=== PATIENT | male | born 1995 | race Caucasian/White ===

== ENCOUNTER 2016-07-23 22:16 | Emergency (ER) | payer SELFPAY ==
[2016-07-23 22:58] VITALS: TEMP 98.2; O2SAT 99
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
[2016-07-24 00:31] VITALS: BP 118/64
== END 2016-07-24 00:20 | disposition home or self-care (01) ==
LOC: ER 22:16
DX: S43.409A Unspecified sprain of unspecified shoulder joint, initial encounter (principal); V86.59XA Driver of other special all-terrain or other off-road motor vehicle injured in nontraffic accident, initial encounter

== ENCOUNTER 2017-04-23 20:21 | Emergency (ER) | payer OTHER ==
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
[2017-04-23 21:00] VITALS: TEMP 98
[2017-04-23] MEDS: TETANUS,DIPHTHERIA,PERTUSSIS 1 EA SYG IM ONE (21:29)
--- NOTE | 2017-04-23 21:43 | CT ---
PROCEDURE: Head HISTORY: pain Indication: Same as above Comparison: None Technique: CT of the head was done without intravenous contrast was done in the orthogonal planes. This exam was performed according to our departmental dose-optimization program, which includes automated exposure control, adjustment of the mA and/or KV according to the patient's size and/or use of iterative reconstruction technique. FINDINGS: There is no intracranial hemorrhage, midline shift mass effect or acute focal infarct. If clinical concern exists regarding an acute ischemic/vascular pathology being responsible for patient's symptomatology, an MRI of the brain is more sensitive than the current study, in ruling out such a possibility. There is good ann/white matter differentiation. The ventricular system is normal. The mastoid air cells are unremarkable . The paranasal sinuses are unremarkable . There is no visualization of acute fractures involving the calvarium or the skull base. IMPRESSION: There is no acute intracranial abnormality. Electronically signed by: Hector Reed MD 04/23/2017 9:42 PM CDT Workstation: [id number]
--- NOTE | 2017-04-23 21:46 | CT ---
PROCEDURE: Cervical Spine HISTORY: pain Indication: Same as above Comparison: None Technique: CT of the cervical spine was done without intravenous contrast, including axial, sagittal and coronal reconstructions. This exam was performed according to our departmental dose-optimization program, which includes automated exposure control, adjustment of the mA and/or KV according to the patient's size and/or use of iterative reconstruction technique. FINDINGS: There is no CT evidence of acute cervical spinal fractures or dislocations. The craniovertebral junction appears unremarkable. There is no significant degenerative change There is limited evaluation for acute or chronic intervertebral disc herniations or protrusions given the limitation of lack of intrathecal contrast. The prevertebral and the paravertebral soft tissues appear unremarkable. There is no gross evidence of epidural hematoma or paraspinal soft tissue fluid collections. The remainder of the visualized surrounding subcutaneous soft tissues and muscle structures are grossly unremarkable. The visualized airway appears unremarkable. The hyoid, cricoid and laryngeal cartilages are intact. The visualized segments of the bilateral parotid glands and the bilateral submandibular glands are unremarkable. There is no visualization of pathological lymphadenopathy in the region of the imaged neck. The bone mineralization is normal. The visualized lung apices are unremarkable . The sagittal reconstructed images demonstrate normal alignment The coronal reconstructed images demonstrate normal alignment. IMPRESSION: Negative for acute cervical spine bony trauma. Electronically signed by: Hector Reed MD 04/23/2017 9:44 PM CDT Workstation: [id number]
[2017-04-23] MEDS: CEPHALEXIN MONOHYDRATE 500 MG CAP PO ONE (21:56)
[2017-04-23] MEDS: HYDROcodone 7.5MG/APAP 325MG 1 EA TAB PO ONE (22:06)
[2017-04-23] MEDS: KETOROLAC TROMETHAMINE INJ 30 MG/ML VIAL IM ONE (22:07)
[2017-04-23] MEDS: ORPHENADRINE CITRATE 30 MG/ML AMP IV ONE (22:08)
[2017-04-23] MEDS: ORPHENADRINE CITRATE 30 MG/ML AMP IM ONE (22:11)
[2017-04-23] MEDS: HYDROCOD/APAP 7.5/325 (ER DISP) #3 TAB PO ONE (22:51)
[2017-04-23 22:55] VITALS: BP 118/65; O2SAT 99
== END 2017-04-23 22:59 | disposition home or self-care (01) ==
LOC: ER 20:21
DX: S06.0X0A Concussion without loss of consciousness, initial encounter (principal); S30.810A Abrasion of lower back and pelvis, initial encounter; S20.419A Abrasion of unspecified back wall of thorax, initial encounter; Z23 Encounter for immunization; V86.56XA Driver of dirt bike or motor/cross bike injured in nontraffic accident, initial encounter; Y92.9 Unspecified place or not applicable
CPT/HCPCS: 36415; 70450; 72125; 80053; 81001; 85025; 90471; 90715; J1885; J2360

== ENCOUNTER 2018-10-20 18:57 | Emergency (ER) | payer SELFPAY ==
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
[2018-10-20 19:24] VITALS: TEMP 99.9; O2SAT 99
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
[2018-10-20 20:12] VITALS: BP 123/78
== END 2018-10-20 20:12 | disposition home or self-care (01) ==
LOC: ER 18:57
DX: S82.832A Other fracture of upper and lower end of left fibula, initial encounter for closed fracture (principal); F17.290 Nicotine dependence, other tobacco product, uncomplicated; V86.59XA Driver of other special all-terrain or other off-road motor vehicle injured in nontraffic accident, initial encounter; Y92.9 Unspecified place or not applicable

== ENCOUNTER 2019-09-11 | Emergency (ER) | payer OTHER | END 2019-09-11 21:55 | disposition home or self-care (01) | DX: M24.411 Recurrent dislocation, right shoulder (principal); F17.290 Nicotine dependence, other tobacco product, uncomplicated | CPT/HCPCS: 73020; 94770; J1885 ==

== ENCOUNTER 2019-09-14 07:55 | Emergency (ER) | payer OTHER ==
--- NOTE | 2019-09-14 08:29 | ED.PDOC ---
History of Present Illness - General Chief Complaint: Upper Extremity Injury Stated Complaint: Poss R shoudler dislocation Time Seen by Provider: 09/14/19 08:26 - History of Present Illness Initial Comments: 23 yo M PMH repeated right shoulder dislocations x 6 years presents to ED c/o right shoulder pain and dislocation last night during sleep. Denies new trauma fever chills nausea vomiting diarrhea chest pain sob diaphoresis. Otherwise no change in diet bowel or bladder admits electronic cigarettes PMD Alton Lara no other c/o today. Allergies/Adverse Reactions: Allergies NO KNOWN ALLERGY Allergy (Verified 09/14/19 08:06) Home Medications: Ambulatory Orders Ikchgvmmuralf-Ueuq-Ustkbdkvwy [Fioricet] 1 ea PO Q8H PRN #21 tab 10/20/18 Acetaminophen [Tylenol] 650 mg PO Q6H PRN #30 tab 09/14/19 Ibuprofen 600 mg PO Q6H PRN #20 tab 09/14/19 Review of Systems - Review of Systems Constitutional: States: see HPI EENTM: States: see HPI Respiratory: States: see HPI Cardiology: States: see HPI Gastrointestinal/Abdominal: States: see HPI Genitourinary: States: see HPI Musculoskeletal: States: see HPI Skin: States: see HPI Neurological: States: see HPI Endocrine: States: see HPI Hematologic/Lymphatic: States: see HPI All other Systems: Reviewed and Negative Past Medical History (General) - Patient Medical History Hx Seizures: No Hx Stroke: No Hx Dementia: No Hx Asthma: No Hx of COPD: No Hx Cardiac Disorders: No Hx Congestive Heart Failure: No Hx Pacemaker: No Hx Hypertension: No Hx Thyroid Disease: No Hx Diabetes: No Hx Gastroesophageal Reflux: No Hx Renal Disease: No Hx Cancer: No Hx of HIV: No Hx Hepatitis C: No Hx MRSA: No - Vaccination History Hx Tetanus, Diphtheria Vaccination: Yes Hx Influenza Vaccination: No Hx Pneumococcal Vaccination: No Immunizations Up to Date: No - Social History Hx Tobacco Use: Yes Hx Chewing Tobacco Use: No Hx Alcohol Use: Yes Hx Substance Use: No Hx Substance Use Treatment: No Hx Depression: No Hx Physical Abuse: No Hx Emotional Abuse: No Hx Suspected Abuse: No - Female History Patient is a Female of Child Bearing Age (10 -59 yrs old): No Patient : No Family Medical History - Family History Mother Family History: No Known Living Status: Still Living Hx Family Hypertension: Yes Hx Family Diabetes: Yes Physical Exam - Physical Exam General Appearance: No apparent distress Eyes, Ears, Nose, Throat Exam: normal ENT inspection Neck: non-tender, full range of motion Cardiovascular/Respiratory: regular rate, rhythm Abdominal Exam: non-tender Back Exam: no CVA tenderness Shoulder Exam: limited ROM, pain - on right Elbow/Forearm Exam: non-tender Wrist Exam: non-tender Hand Exam: non-tender Neuro/Tendon: normal sensation Mental Status: alert, oriented x 3 Skin Exam: normal color Progress - Progress Progress: 09/14/19 08:30 A/P-Shoulder Pain Shoulder Dislocation-pain control reduce sling d/c follow up pcp consider surgical definitive repair tylenol ibuprofen 09/14/19 08:55 EXAM DESCRIPTION: Shoulder, right 2 or More Views : CLINICAL HISTORY: Poss dislocation . COMPARISON: September 10 . TECHNIQUE: A two view x-ray examination of Right shoulder is submitted. FINDINGS: Anterior subcoracoid dislocation of the right shoulder is noted. On the prior examination a prominent Hill-Sachs deformity was seen. There is no evidence of soft tissue swelling. The bones are normally mineralized . AC joint appears unremarkable. IMPRESSION: Recurrent anterior dislocation right shoulder. Electronically signed by: Meche Franco MD 09/14/2019 8:32 AM CDT 09/14/19 09:27 EXAM DESCRIPTION: Shoulder, right 2 or More Views : CLINICAL HISTORY: Post r eduction x-ray . COMPARISON: 09/14/2019, 8:14 AM . TECHNIQUE: Three view x-ray examination of right shoulder is submitted. FINDINGS: Satisfactory reduction of the shoulder dislocation is noted. Prominent Hill-Sachs deformity seen. There is no evidence of soft tissue swelling. The bones are normally mineralized . IMPRESSION: Satisfactory reduction of the shoulder dislocation. Hill-Sachs deformity. Electronically signed by: Meche Franco MD 09/14/2019 9:23 AM CDT Departure - Departure Clinical Impression: Recurrent anterior dislocation of right shoulder, Hill Sachs deformity, right Shoulder pain Qualifiers: Chronicity: chronic Laterality: right Qualified Code(s): M25.511 - Pain in right shoulder; G89.29 - Other chronic pain Time of Disposition: 09:32 Disposition: Discharge to Home or Self Care Condition: Good Departure Forms: ED Discharge - Pt. Copy, Patient Portal Self Enrollment Instructions: DI for Arm Pain Referrals: ELSA LARA IV, BILLET CUTTER [Primary Care Provider] - 1-2 Days Prescriptions: Acetaminophen [Tylenol] 650 mg PO Q6H PRN #30 tab PRN Reason: Pain Ibuprofen 600 mg PO Q6H PRN #20 tab PRN Reason: Pain Home Medications: Ambulatory Orders Afylajttujwos-Dypp-Lxpjlefxpt [Fioricet] 1 ea PO Q8H PRN #21 tab 10/20/18 Acetaminophen [Tylenol] 650 mg PO Q6H PRN #30 tab 09/14/19 Ibuprofen 600 mg PO Q6H PRN #20 tab 09/14/19
--- NOTE | 2019-09-14 08:37 | RAD ---
EXAM DESCRIPTION: Shoulder, right 2 or More Views : CLINICAL HISTORY: Poss dislocation . COMPARISON: September 10 . TECHNIQUE: A two view x-ray examination of Right shoulder is submitted. FINDINGS: Anterior subcoracoid dislocation of the right shoulder is noted. On the prior examination a prominent Hill-Sachs deformity was seen. There is no evidence of soft tissue swelling. The bones are normally mineralized . AC joint appears unremarkable. IMPRESSION: Recurrent anterior dislocation right shoulder. Electronically signed by: Meche Franco MD 09/14/2019 8:32 AM CDT
[2019-09-14] MEDS ORDERED: PROPOFOL 200 MG/20 ML VIAL IV ONE (08:43)
[2019-09-14] MEDS ORDERED: SODIUM CHLORIDE 0.9% 1000ML 1,000 ML ONE (08:48)
[2019-09-14] MEDS ORDERED: ETOMIDATE INJECTION 2 MG/ML 20ML VIAL IV ONE (08:52)
[2019-09-14] MEDS: SODIUM CHLORIDE 0.9% 1000ML 1,000 ML IVS ONE (08:57)
[2019-09-14] MEDS: ETOMIDATE INJECTION 2 MG/ML 20ML VIAL IV ONE (08:57)
--- NOTE | 2019-09-14 09:26 | RAD ---
EXAM DESCRIPTION: Shoulder, right 2 or More Views : CLINICAL HISTORY: Post reduction x-ray . COMPARISON: 09/14/2019, 8:14 AM . TECHNIQUE: Three view x-ray examination of right shoulder is submitted. FINDINGS: Satisfactory reduction of the shoulder dislocation is noted. Prominent Hill-Sachs deformity seen. There is no evidence of soft tissue swelling. The bones are normally mineralized . IMPRESSION: Satisfactory reduction of the shoulder dislocation. Hill-Sachs deformity. Electronically signed by: Meche Franco MD 09/14/2019 9:23 AM CDT
[2019-09-14 09:54] VITALS: BP 121/92; TEMP 97.6; O2SAT 99
== END 2019-09-14 09:45 | disposition home or self-care (01) ==
LOC: ER 07:55
DX: M24.411 Recurrent dislocation, right shoulder (principal); S42.291A Other displaced fracture of upper end of right humerus, initial encounter for closed fracture; F17.290 Nicotine dependence, other tobacco product, uncomplicated; X58.XXXA Exposure to other specified factors, initial encounter; Y93.84 Activity, sleeping; Y92.9 Unspecified place or not applicable

== ENCOUNTER → 2019-10-22 | Outpatient (CLI) | payer OTHER ==
--- NOTE | 2019-10-22 14:32 | RAD ---
EXAM DESCRIPTION: Arthrogram Shoulder Right: RF. CLINICAL HISTORY: DISLOCATION OF SHOULDER JOINT RIGHT. Chronic dislocation. COMPARISON: Post-arthrogram MRI scan of the right shoulder same date. TECHNIQUE: The procedure was performed by Dr. Viera; procedure explained to the patient with risks and benefits. The patient gave verbal and written consent. Patient supine on the fluoroscopic table with right shoulder in external rotation. The anterior mid superior right glenohumeral joint was localized by fluoroscopy. The skin was marked, then prepped and draped in a sterile fashion. 3 mL of 1% xylocaine, 1 cc sodium bicarbonate , given intradermally and intramuscularly. 5 cc of nonionic contrast was prepared in a syringe. A mixture of 10 cc nonionic contrast, 10 cc of sterile normal saline and 0.1% gadolinium was prepared in a second syringe. A 3-cm, 25-ga. needle was introduced into the anterior superior right glenohumeral joint capsule under fluoroscopic visualization. A test injection of 2 cc of the contrast only was performed under fluoroscopy. Additional 9 cc of the contrast mixture was then injected under fluoroscopy. The patient tolerated the procedure well. Patient was transferred to the high field MRI suite for multiplanar imaging. No immediate complications. Fluoroscopy time was 1.3 minutes. DAP 1.6 Gy-cm2. 1 AP image with right shoulder in external rotation obtained. IMPRESSION: Successful, fluoroscopic-guided arthrogram of the right shoulder prior to MRI scan. Please refer to MRI images and report.. Permanent images from this procedure are maintained in the patient's medical record. Electronically signed by: Nicolas Viera MD 10/22/2019 2:31 PM CDT
--- NOTE | 2019-10-23 07:45 | MRI ---
Study: MRI Arthrogram of the Right Shoulder. Indication: DISLOCATION OF SHOULDER JOINT RIGHT Technique: Multiplanar, multi sequence MRI arthrogram of the right shoulder was obtained after intra-articular injection of contrast. Please see the accompanying report regarding the procedural portion of this exam. Comparison: Radiographs September 14, 2019. Findings: Moderate hypertrophic AC joint osteoarthritis. Type I acromion. Supraspinatus and infraspinatus tendinosis without fluid-filled tear. Subscapularis and teres minor tendons intact. Rotator cuff musculature normal without atrophy, fatty infiltration, or intramuscular edema. Subtle long head biceps tendinosis without tear. Acute on chronic Hill-Sachs fracture suspected with significant cavity posterolateral humeral head and mild surrounding marrow edema. Humeral head normally located at this time. A corresponding osseous Bankart lesion suspected with the displaced cortical rim fragment measuring approximately 5 mm AP by 20 mm craniocaudal by 6 mm transverse but difficult to evaluate by MRI technique. It appears displaced anteriorly by up to 3 mm. Associated full-thickness contrast-filled tearing throughout the anterior labrum with anterior glenoid periosteal stripping extending medially by 15 mm. High-grade undersurface tearing throughout the bicipital labral anchor and superior labrum noted as well. There is truncation of the posterior labrum. At the posterior glenohumeral joint space is a 7 mm loose body. Subtle grade 2 and mild grade 3 chondral thinning anteriormost margin of the glenoid. Scattered synovitis in the axillary pouch. Impression: Supraspinatus and infraspinatus tendinosis without tear. Subtle intracapsular long head biceps tendinosis. 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 Dedicated CT could better evaluate. Full-thickness anterior labral tearing with additional high-grade tearing bicipital labral anchor and superior labrum. Minimal glenohumeral joint osteoarthritis with scattered synovitis at the axillary pouch as well as a 7 mm loose body posteriorly. Moderate AC joint osteoarthritis. Electronically signed by: Pelon Chen MD 10/23/2019 7:43 AM CDT
== END ==
LOC: MRI 12:50
PROVIDERS: ATTEND Orthopaedic Surgery
DX: S43.004A Unspecified dislocation of right shoulder joint, initial encounter (principal); S42.294A Other nondisplaced fracture of upper end of right humerus, initial encounter for closed fracture; S43.431A Superior glenoid labrum lesion of right shoulder, initial encounter; M19.011 Primary osteoarthritis, right shoulder; M65.88 Other synovitis and tenosynovitis, other site